=== PATIENT | male | born 1980 | race Asian ===

== ENCOUNTER 2024-06-12 18:11 | Emergency (ER) | payer MEDICAID ==
[~2024-06-12] VITALS: Ht 167.6 cm; Wt 74.8 kg
[2024-06-12 18:58] VITALS: TEMP 98.6
[2024-06-12 23:54] VITALS: BP 127/77; O2SAT 99
== END 2024-06-12 21:25 | disposition home or self-care (01) ==
LOC: ER 18:23
DX: S66.811A Strain of other specified muscles, fascia and tendons at wrist and hand level, right hand, initial encounter (principal); X58.XXXA Exposure to other specified factors, initial encounter; Y93.89 Activity, other specified; Y92.89 Other specified places as the place of occurrence of the external cause; Y99.8 Other external cause status
CPT/HCPCS: 29105; 73200; 99284; L3763